=== PATIENT | male | born 1950 | race Caucasian/White ===

== ENCOUNTER 2016-08-14 06:30 | Day surgery (SDC) | payer MEDICARE, OTHER ==
--- NOTE | 2016-07-22 06:47 | HP ---
ADMISSION HISTORY AND PHYSICAL: DATE OF ADMISSION: 08/14/16 ATTENDING SURGEON: Dr. Gerber Olmos. (DICTATED BY CHRISTAL IQBAL) CHIEF COMPLAINT: Right inguinal hernia. HISTORY OF PRESENT ILLNESS: This is a 66-year-old male, who states that in April of this year, he noted some discomfort in the right groin after playing pickleball. Eventually, a bulge was noted and he has continued to note some level of discomfort particularly if he is standing for long periods of time. He has not had any symptoms to suggest incarceration or strangulation. He denies any specific changes in GI or function. He was seen in the office by Dr. Olmos on 07/15/16 at which time exam confirmed the presence of a moderately large, reducible, soft, nontender right inguinal hernia. 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 Dr. Olmos discussed with him the indications for surgery, the risks, benefits, and alternatives and the patient would like to proceed as scheduled with open repair right inguinal hernia with mesh. PAST MEDICAL HISTORY: Hypertension, hiatal hernia with GERD, diverticulosis ( no history of diverticulitis), coronary artery disease (he had a catheterization many years ago showing 50% occlusion of one of his coronary arteries for which he is on the current medical regimen with no subsequent history of chest pain, [place], or angina). PAST SURGICAL HISTORY: Probable left inguinal herniorrhaphy as a child. 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 He has had various benign cysts removed. CURRENT MEDICATIONS: 1. Bactrim DS 1 tablet b.i.d. He will complete on 07/23/16 (see below under review of systems). 2. Omeprazole 40 mg once daily. 3. Amlodipine 5 mg once daily. 4. Ramipril 10 mg once daily. 5. Metoprolol 25 mg once daily. 6. Aspirin 81 mg once daily (he will continue perioperatively). 7. Simvastatin 20 mg once daily. DRUG ALLERGIES: UREACIN (local reaction to application of TOPICAL UREACIN on the plantar surface of his feet). FAMILY HISTORY: Negative for anesthesia problems, bleeding, or clotting disorders. SOCIAL HISTORY: The patient is . 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 He denies use of tobacco, alcohol, or other recreational drugs. REVIEW OF SYSTEMS: General: He had a recent splinter to the volar aspect of his left ring finger. This was removed here in the office by Dr. Olmos on . Culture showed normal ayana. He will complete antibiotics in 2 days and has had a significant clinical improvement. Aside from that, no other recent or acute illnesses or constitutional symptoms. Weight has been stable. HEENT: No problems reported. Cardiovascular: He is treated for hypertension, coronary artery disease as noted above with no subsequent problems (see above). Respiratory: No history of asthma, chronic cough, or shortness of breath. GI : He has a history of diverticulosis by colonoscopy done earlier this year. No other problems reported and recommended followup was 10 years. EGD was done more recently with Dr. Fischer, apparently showing a hiatal hernia, but without any other problems. He is still waiting to hear back regarding recommendations for the PPI. : No problems reported. Endocrine: No diabetes or thyroid dysfunction. PHYSICAL EXAMINATION GENERAL: Well-nourished, well-developed male, in no acute distress. VITAL SIGNS: Height 71.5 inches, weight 175 pounds, blood pressure 118/72, pulse 60, respirations 16. HEENT: Pupils equal and round, reactive. EOMs intact. No conjunctival pallor. Oropharynx: Teeth in good repair. Mucous membranes moist. No intraoral lesions. NECK: No lymphadenopathy in the cervical or supraclavicular regions. No thyromegaly or masses. LUNGS: Clear to auscultation. No rales or wheezes. HEART: Regular rate and rhythm. No murmur noted. ABDOMEN: Soft, nontender to palpation. No palpable masses or organomegaly with exception of right groin bulge per Dr. Olmos's exam not repeated today. There is a well-healed left inguinal surgical scar. By history, he has a hydrocele in the left for many years, which have been asymptomatic. RECTAL: Not done. Done recently. No problems reported. BACK: No spinous process or CVA tenderness. EXTREMITIES: No edema. NEUROLOGICAL: Grossly intact. SKIN: Warm and dry. No suspicious rashes or lesions noted. IMPRESSION: Right inguinal hernia. PLAN: Open repair right inguinal hernia with mesh. CHRISTAL IQBAL CC: Dr. Angella Longoria, ESCALATOR CONSTRUCTOR* [id number]/[facility] #: [id number] AMBROSE
[~2016-08-14 06:30] MED LIST: Buffered Lidocaine 0.9% SYRIN* 5 ML/SYR SYRINGE INTRADERM ONE; Famotidine IV* 10 MG/ML 2 ML (20 mg) IV ONE; Morphine INJ* 2 MG/ML 1 ML SYRINGE IV PRN; PROCHLORPERAZINE INJ 5 MG/ML 2 ML VIAL IV PRN; fentaNYL* 50 MCG/ML 2 ML VIAL (100 MCG VIAL) IV PRN
[2016-08-14] MEDS ORDERED: Buffered Lidocaine 0.9% SYRIN* 5 ML/SYR SYRINGE ONE (06:49)
[2016-08-14] MEDS ORDERED: ceFAZolin 2 GM PREMIX(*) 2 GM/50 ML BAG IVPB ONE (06:49)
[2016-08-14] MEDS ORDERED: Famotidine IV* 10 MG/ML 2 ML (20 mg) ONE (06:49)
[2016-08-14] MEDS ORDERED: Bupivacaine 0.5% W/EPI SDV* 30 ML VIAL ONE (06:52)
[2016-08-14] MEDS ORDERED: Lidocaine 1% INJ* 10 MG/ML 30 ML SDV ONE (06:53)
[2016-08-14] MEDS ORDERED: fentaNYL* 50 MCG/ML 2 ML VIAL (100 MCG VIAL) ONE ×2 (07:28→11:02)
[2016-08-14] MEDS ORDERED: Midazolam* 1 MG/ML 5 ML VIAL (5 MG) ONE (07:29)
[2016-08-14] MEDS ORDERED: KETAMINE HCL* 50 MG/ML 10 ML VIAL ONE (07:29)
[2016-08-14] MEDS ORDERED: Labetalol IV* 5 MG/ML 20 ML VIAL ONE (07:59)
[2016-08-14] MEDS ORDERED: Ondansetron INJ* 2 MG/ML VIAL ONE (08:06)
[2016-08-14] MEDS ORDERED: Propofol* 10 MG/ML 20 ML BTL IV PUSH ONE (08:06)
[2016-08-14] MEDS ORDERED: Lidocaine 2% PF * 5 ML VIAL ONE (08:06)
[2016-08-14] MEDS ORDERED: Dexamethasone IV* 4 MG/ML 1 ML (4 MG) ONE (08:06)
--- NOTE | 2016-08-14 10:11 | OP ---
CC: Dr. Angella Longoria DATE OF OPERATION: 08/14/16 DATE OF : 48 SURGEON: Gerber Olmos MD DOOR INSTALLER: CHRISTAL Mitchell ANESTHESIOLOGIST: Gerber Ayala MD ANESTHESIA: LMAC. PRE-OP DIAGNOSIS: Right inguinal hernia. POST-OP DIAGNOSIS: Right inguinal hernia. OPERATIVE PROCEDURE: Open repair right inguinal hernia with mesh. DESCRIPTION OF PROCEDURE: The patient is supine on the operative table after adequate intravenous s edation, compression stockings, Analy-Hugger warmer, and intravenous antibiotics. The right groin is clipped and prepped with antiseptic and draped in a sterile fashion. Local infiltrative anesthesia is administered. An approximately 5 cm right inguinal incision was created, carried down through th e tissue layers to the external oblique which was opened in the direction of its fibers. Cord struc tures were encircled with a Kal drain, tented upward, and the indirect sac was readily identifie d in its usual location. It was dissected free and reduced, and a cone mesh plug was placed into th e internal ring, sutured with 2-0 Polysorb. A second piece of mesh was placed over the inguinal mendy or, sutured at the tubercle. Tails were split, brought around the cord structures, tacked down late rally, and external oblique was closed over the top with 2-0 Polysorb, Agata's with 3-0 Polysorb, s kin with 4-0 Surgipro, followed by a sterile dressing. He tolerated the procedure well and was awak ened and brought to recovery in good condition. No complications. No drains. No pathologic specim ens. Sponge and instrument counts correct. Estimated blood loss 10 mL. [id number]/[facility] #: [id number]
[2016-08-14] MEDS ORDERED: oxyCODONE/Acetamin 5/325 MG* TAB ONE ×2 (10:19→12:34)
[2016-08-14] MEDS: oxyCODONE/Acetamin 5/325 MG* TAB PO PRN ×2 (10:20→12:43)
[2016-08-14 12:58] VITALS: BP 130/76
== END 2016-08-14 12:59 | disposition home or self-care (01) ==
LOC: OR 06:30
PROVIDERS: ATTEND Surgery
DX: K40.90 Unilateral inguinal hernia, without obstruction or gangrene, not specified as recurrent (principal); I10 Essential (primary) hypertension; I25.10 Atherosclerotic heart disease of native coronary artery without angina pectoris; K21.9 Gastro-esophageal reflux disease without esophagitis
CPT/HCPCS: A9270-GY; C1781; J0690; J1100; J2001; J2250; J2405; J2704; J3010